=== PATIENT | female | born 1980 | race Two or more races ===

== ENCOUNTER 2023-11-14 09:06 | Emergency (ER) | payer MEDICAID ==
[~2023-11-14] VITALS: Ht 152.4 cm; Wt 64.1 kg
[2023-11-14 09:29] VITALS: BP 115/64; PULSE 65; RESP 16; TEMP 98.1; O2SAT 100
[2023-11-14] MEDS ORDERED: METH-1181 PO (09:58)
[2023-11-14] MEDS ORDERED: IBUP-1454 PO (09:58)
== END 2023-11-14 10:03 | disposition home or self-care (01) ==
LOC: ER 09:06
DX: S16.1XXA Strain of muscle, fascia and tendon at neck level, initial encounter (principal); X50.3XXA Overexertion from repetitive movements, initial encounter; Y93.89 Activity, other specified; Y92.89 Other specified places as the place of occurrence of the external cause; Y99.8 Other external cause status
CPT/HCPCS: 72040